=== PATIENT | female | born 1955 | race Caucasian/White ===

== ENCOUNTER 2018-02-01 16:50 | Emergency (ER) | payer BC, OTHER ==
--- NOTE | 2018-02-01 16:55 | PDOC ---
History of Present Illness - History of Present Illness Initial Comments: 02/01/18 18:02 Patient is a 62 year old female with PMHx of IBS, UTIs, fibroids, Raynaud's, peripheral neuropathy, cervical arthritic discs, who presents with epigastric and back pain for 2 weeks. Patient states that her back pain began first and then her abdominal pain began. Her abdominal pain worsened 4 days ago and describes it as burning, pressure-like, constant, at times sharp. Abdominal pain has gotten to 10/10 at times, especially at night. Patient states she took 600mg of Ibuprofen last night and this morning to get through the night. She also admits to vaginal and rectal pain as well as nausea and lethargy. Surgical Hx: inguinal hernia repair Social Hx: social EtOH, quit smoking PCP: Iesha Hernández <Rebeka Bass - Last Filed: 02/01/18 18:03> - General History Source: Patient Exam Limitations: No Limitations <Ijeoma Elias - Last Filed: 02/02/18 14:47> - General Chief Complaint: Pain Stated Complaint: ABD, BACK PAIN Time Seen by Provider: 02/01/18 16:54 Past History <Rebeka Bass - Last Filed: 02/01/18 18:03> <Ijeoma Elias - Last Filed: 02/02/18 14:47> - Past Medical History Allergies/Adverse Reactions: Allergies Allergy/AdvReac Type Severity Reaction Status Date / Time cortisone Allergy Verified 02/01/18 16:56 Penicillins Allergy Verified 02/01/18 16:56 Sulfa (Sulfonamide Allergy Verified 02/01/18 16:56 Antibiotics) sulfamethoxazole Allergy Verified 02/01/18 16:56 [From ] Tetracyclines Allergy Verified 02/01/18 16:56 trimethoprim [From ] Allergy Verified 02/01/18 16:56 Home Medications: Ambulatory Orders Escitalopram Oxalate [Lexapro -] 10 mg PO DAILY 02/01/18 Eszopiclone [Lunesta] 3 mg PO HS 02/01/18 Ibuprofen 600 mg PO ASDIR 02/01/18 Review of Systems - Review of Systems Comments:: 02/01/18 18:03 GENERAL/CONSTITUTIONAL: +lethargy. No: fever, chills, weakness, loss of appetite. HEAD, EYES, EARS, NOSE AND THROAT: No: change in vision, ear pain, discharge, sore throat, throat swelling. CARDIOVASCULAR: No: chest pain, lightheadedness, palpitations, syncope RESPIRATORY: No: cough, shortness of breath, wheezing, hemoptysis, stridor. GASTROINTESTINAL: +epigastric pain. +rectum pain + nausea No: nausea, vomiting , diarrhea, rectal bleeding, constipation. GENITOURINARY: No: dysuria, hematuria, frequency, urgency, flank pain. MUSCULOSKELETAL: No: back pain, neck pain, joint pain, muscle swelling or pain SKIN: No: lesions, pallor, rash or easy bruising. NEUROLOGIC: No: headache, vertigo, paresthesias, weakness ENDOCRINE: No: unexplained weight gain or loss HEMATOLOGIC/LYMPHATIC: No: anemia, easy bleeding, swelling nodes <Rebeka Bass - Last Filed: 02/01/18 18:03> *Physical Exam - Vital Signs Last Vital Signs Temp Pulse Resp BP Pulse Ox 98.3 F 63 18 139/69 99 02/01/18 16:50 02/01/18 16:50 02/01/18 16:50 02/01/18 16:50 02/01/18 16:50 - Physical Exam Comments: 02/01/18 18:03 GENERAL: The patient is in no acute distress. Answer questions appropriately HEAD: Normal with no signs of trauma. EYES: PERRLA, EOMI, sclera anicteric, conjunctiva clear. ENT: Ears normal, nares patent, oropharynx clear without exudates. Moist mucous membranes. NECK: Normal range of motion, supple without lymphadenopathy, JVD, or masses. LUNGS: Breath sounds equal, clear to auscultation bilaterally. No wheezes, and no crackles. HEART:Regular rate and rhythm, normal S1 and S2 without murmur, rub or gallop. ABDOMEN: Soft, epigastric tenderness, Shooting pain to palpation from RLQ LLQ, normoactive bowel sounds. No guarding, no rebound. EXTREMITIES: Normal range of motion, no edema. No clubbing or cyanosis. No erythema, or tenderness. NEUROLOGICAL: Cranial nerves II through XII grossly intact. Normal speech. No focal neurological deficits. MUSCULOSKELETAL: Back nontender to palpation, no CVA tenderness SKIN: Warm, Dry, normal turgor, no rashes or lesions noted. <Rebeka Bass - Last Filed: 02/01/18 18:03> ED Treatment Course - LABORATORY CBC & Chemistry Diagram: 02/01/18 17:30 02/01/18 17:30 - ADDITIONAL ORDERS Additional order review: Laboratory Results 02/01/18 17:00 Urine Color Yellow Urine Appearance Clear Urine pH 7.0 Ur Specific [place] 1.010 Urine Protein Negative Urine Glucose (UA) Negative Urine Ketones Negative Urine Blood Negative Urine Nitrite Negative Urine Bilirubin Negative Urine Urobilinogen 0.2 Ur Leukocyte Esterase Negative 02/01/18 17:30 RBC 4.74 MCV 90.9 MCHC 34.1 RDW 12.7 MPV 7.2 L Neutrophils % 69.8 Lymphocytes % 20.1 Monocytes % 7.2 Eosinophils % 0.8 Basophils % 2.1 H - Medications Given in the ED: ED Medications Discontinued Medications Generic Name Dose Route Start Last Admin Trade Name Freq PRN Reason Stop Dose Admin Ondansetron HCl 4 mg 02/01/18 17:20 02/01/18 17:45 Zofran Injection IVPUSH 02/01/18 17:21 4 mg ONCE ONE Administration <Rebeka Bass - Last Filed: 02/01/18 18:03> - LABORATORY CBC & Chemistry Diagram: 02/01/18 17:30 02/01/18 17:30 <Ijeoma Elias - Last Filed: 02/02/18 14:47> Medical Decision Making - Medical Decision Making 02/01/18 17:36 Ms Josh García She is a 62-year-old female presents emergency department with a complaint of abdominal pain from her primary care physician's office. Briefly she has a history of IBS (diagnosed as a young woman with ulcerative colitis, never treated for this), history of renal bouts disease, history of bilateral peripheral neuropathy of the lower extremity, history of gluten sensitivity/lactose intolerance. Patient states that a possibly 2 weeks ago she noted back pain which was initially mild, bearable. She gradually noticed worsening of her back pain and now associated abdominal pain. Again, pain was bearable. Approximately 4 days ago patient noted that her pain significantly worsened. Typically she is very active person with no difficulty ambulating. She noticed on account of her pain that she has hunched over, and was now walking more slowly. She describes her pain as sharp/burning/pressure. 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, has not followed up with GI in at least 6 years Of note, pt had a dx of myeloma, was told that she needed a work up She followed up with her doctor 6 months later and was told that everything was normal 02/01/18 18:20 Laboratory Tests 02/01/18 02/01/18 02/01/18 17:00 17:30 17:30 WBC 6.2 Hgb 14.7 Hct 43.1 Plt Count 301 Neutrophils % 69.8 Lymphocytes % 20.1 Sodium 125 L Potassium 5.1 Chloride 91 L Carbon Dioxide 25 BUN 14 Creatinine < 0.8 Random Glucose 91 Total Bilirubin 1.2 H Total Protein 8.4 H Albumin 5.1 H Total Amylase 112 Urine Ketones Negative Urine Blood Negative Urine Nitrite Negative Ur Leukocyte Esterase Negative Pending CT Pt signed out to Dr Betancur clinical impression: abdominal pain, initial presentation hyponatremia, initial presentation <Ijeoma Elias - Last Filed: 02/02/18 14:47> *DC/Admit/Observation/Transfer - Attestations Scribe Attestion: 02/01/18 18:03 Documentation prepared by Rebeka Bass, acting as medical assistant per diem for Ijeoma Elias MD. <Rebeka Bass - Last Filed: 02/01/18 18:03> <Ijeoma Elias - Last Filed: 02/02/18 14:47> Diagnosis at time of Disposition: Hyponatremia, Constipation - Discharge Dispostion Disposition: AGAINST MEDICAL ADVICE Condition at time of disposition: Stable - Referrals Referrals: Iesha Andrew MD [Primary Care Provider] - - Patient Instructions Additional Instructions: It is very important that you follow-up with your primary care doctor tomorrow get your sodium level repeated You are leaving AGAINST MEDICAL ADVICE by leaving AGAINST MEDICAL ADVICE you except the risks involved which could include problems with your heart, seizures , passing out, . Purchase some electrolyte solution such as Gatorade, Powerade or Pedialyte and drink it tonight. For the constipation increase fiber in your diet, and you can use Dulcolax or MiraLAX or an [id number] laxative Return to the emergency department immediately with ANY new, persistent or worsening symptoms. Continue any medications as previously prescribed by your physician. You should follow up with your primary doctor as soon as possible regarding today's emergency department visit. . Please make sure your doctor reviews the results of your emergency evaluation. Thank you for coming to the Emergency Department today for your care. It was a pleasure to see you today. Please note that your evaluation is INCOMPLETE until you follow-up with your doctor. - Post Discharge Activity
[2018-02-01 17:01] VITALS: TEMP 98.3; BMI 19.7
[2018-02-01 17:13] LABS: URINE APPEARANCE Clear; URINE BILIRUBIN Negative (NEGATIVE); URINE BLOOD Negative (NEGATIVE); URINE GLUCOSE (UA) Negative (NEGATIVE); URINE KETONE Negative (NEGATIVE); URINE LEUK ESTERASE Negative (NEGATIVE); URINE NITRITE Negative (NEGATIVE); URINE PROTEIN Negative (NEGATIVE); URINE UROBILINOGEN 0.2 (0.2-1.0)
[2018-02-01 17:14] LABS: URINE COLOR YELLOW
[2018-02-01] MEDS ORDERED: SODIUM CHLORIDE 1,000 ML IV STA (17:20)
[2018-02-01] MEDS ORDERED: morphine CARPU-JECT 4 MG/1 ML DISP.SYRIN IVPUSH ONE (17:20)
[2018-02-01] MEDS ORDERED: ONDANSETRON 4 MG/2 ML VIAL IVPUSH ONE (17:20)
[2018-02-01] MEDS ORDERED: ONDANSETRON 4 MG/2 ML VIAL ONE (17:35)
[2018-02-01] MEDS ORDERED: morphine SULFATE 4 MG/ML VIAL ONE (17:35)
[2018-02-01 17:40] LABS: BASO % 2.1 % (0-2.0); EOS % 0.8 % (0-4.5); HEMATOCRIT 43.1 % (32.4-45.2); HEMOGLOBIN 14.7 GM/dl (10.7-15.3); LYMPH % 20.1 % (8-40); MCHC 34.1 g/dl (32.0-36.0); MEAN CELL VOLUME 90.9 fl (80-96); MEAN PLT VOLUME 7.2 fl (7.5-11.1); MONO % 7.2 % (3.8-10.2); NEUT % 69.8 % (42.8-82.8); PLATELET COUNT 301 K/MM3 (134-434); RBC 4.74 M/mm3 (3.60-5.2); RDW 12.7 % (11.6-15.6); WHITE BLOOD COUNT 6.2 K/mm3 (4.0-10.8)
[2018-02-01 17:50] LABS: ALBUMIN 5.1 g/dl (3.5-5.0); ALK PHOS 77 U/L (32-92); AMYLASE 112 U/L (25-125); ANION GAP 9 (8-16); BILIRUBIN,TOTAL 1.2 mg/dl (0.2-1.0); BLOOD UREA NITROGEN 14 mg/dl (7-18); CALCIUM 9.6 mg/dl (8.4-10.2); CHLORIDE 91 mmol/L (98-107); CO2 25 mmol/L (22-28); GLUCOSE,RANDOM 91 mg/dl (74-106); SGOT/AST 35 U/L (10-42); SGPT/ALT 21 U/L (10-40); SODIUM 125 mmol/L (136-145); TOT PROT 8.4 g/dl (6.4-8.3)
[2018-02-01 18:03] LABS: CREATININE < 0.8 mg/dl (0.6-1.3); POTASSIUM 5.1 mmol/L (3.5-5.1)
[2018-02-01 19:06] LABS: LIPASE 220 U/L (73-393)
--- NOTE | 2018-02-01 19:24 | PDOC ---
*Physical Exam - Vital Signs Last Vital Signs Temp Pulse Resp BP Pulse Ox 98.3 F 63 18 139/69 99 02/01/18 16:50 02/01/18 16:50 02/01/18 16:50 02/01/18 16:50 02/01/18 16:50 ED Treatment Course - LABORATORY CBC & Chemistry Diagram: 02/01/18 17:30 02/01/18 17:30 - ADDITIONAL ORDERS Additional order review: Laboratory Results 02/01/18 02/01/18 17:30 17:00 Sodium 125 L Potassium 5.1 Chloride 91 L Carbon Dioxide 25 Anion Gap 9 BUN 14 Creatinine < 0.8 Creat Clearance w eGFR > 60 Random Glucose 91 Calcium 9.6 Total Bilirubin 1.2 H AST 35 ALT 21 Alkaline Phosphatase 77 Total Protein 8.4 H Albumin 5.1 H Total Amylase 112 Lipase 220 Urine Color Yellow Urine Appearance Clear Urine pH 7.0 Ur Specific [place] 1.010 Urine Protein Negative Urine Glucose (UA) Negative Urine Ketones Negative Urine Blood Negative Urine Nitrite Negative Urine Bilirubin Negative Urine Urobilinogen 0.2 Ur Leukocyte Esterase Negative 02/01/18 17:30 RBC 4.74 MCV 90.9 MCHC 34.1 RDW 12.7 MPV 7.2 L Neutrophils % 69.8 Lymphocytes % 20.1 Monocytes % 7.2 Eosinophils % 0.8 Basophils % 2.1 H - Medications Given in the ED: ED Medications Discontinued Medications Generic Name Dose Route Start Last Admin Trade Name Freq PRN Reason Stop Dose Admin Morphine Sulfate 2 mg 02/01/18 17:20 02/01/18 17:50 Morphine Injection - IVPUSH 02/01/18 17:21 2 mg ONCE ONE Administration Ondansetron HCl 4 mg 02/01/18 17:20 02/01/18 17:45 Zofran Injection IVPUSH 02/01/18 17:21 4 mg ONCE ONE Administration Progress Note - Progress Note Progress Note: Care of this patient was transferred to [place] from Dr. Elias at 1900 hrs. This is a 62-year-old female was sent in by her PMD for evaluation of lower abdominal pain. Patient's workup of this chart does reveal a sodium of 125 which will need to be admitted to an observation bed overnight for correction of. Otherwise the workup is normal. Patient has a CAT scan pending. We'll reassess and follow CAT scan results and admit patient to an observation telemetry bed. Patient CAT scan shows moderate amount of fecal retention otherwise normal Discussed with patient the importance of keeping her at least overnight to replete her sodium and she most likely will be able to be discharged in the morning however patient adamantly refuses to stay overnight and has requested to sign out AGAINST MEDICAL ADVICE patient understands the risks of she is seizure, arrhythmias and . Patient signed out AGAINST MEDICAL ADVICE *DC/Admit/Observation/Transfer Diagnosis at time of Disposition: Hyponatremia, Constipation - Discharge Dispostion Disposition: AGAINST MEDICAL ADVICE Condition at time of disposition: Stable Admit: No - Referrals Referrals: Iesha Andrew MD [Primary Care Provider] - - Patient Instructions Additional Instructions: It is very important that you follow-up with your primary care doctor tomorrow get your sodium level repeated You are leaving AGAINST MEDICAL ADVICE by leaving AGAINST MEDICAL ADVICE you except the risks involved which could include problems with your heart, seizures , passing out, . Purchase some electrolyte solution such as Gatorade, Powerade or Pedialyte and drink it tonight. For the constipation increase fiber in your diet, and you can use Dulcolax or MiraLAX or an [id number] laxative Return to the emergency department immediately with ANY new, persistent or worsening symptoms. Continue any medications as previously prescribed by your physician. You should follow up with your primary doctor as soon as possible regarding today's emergency department visit. . Please make sure your doctor reviews the results of your emergency evaluation. Thank you for coming to the Emergency Department today for your care. It was a pleasure to see you today. Please note that your evaluation is INCOMPLETE until you follow-up with your doctor. - Post Discharge Activity
[2018-02-01 20:53] VITALS: BP 126/59; PULSE 68
[2018-02-01] MEDS ORDERED: SODIUM CHLORIDE 1,000 ML IV SCH (21:00)
== END 2018-02-01 21:28 | disposition left against medical advice (07) ==
LOC: FER 16:50
PROC: 3E033NZ Introduction of Analgesics, Hypnotics, Sedatives into Peripheral Vein, Percutaneous Approach (ICD-10-PCS; principal; 2018-02-01)
PROC: 3E033GC Introduction of Other Therapeutic Substance into Peripheral Vein, Percutaneous Approach (ICD-10-PCS; 2018-02-01)
PROC: 3E0337Z Introduction of Electrolytic and Water Balance Substance into Peripheral Vein, Percutaneous Approach (ICD-10-PCS; 2018-02-01)
DX: E87.1 Hypo-osmolality and hyponatremia (principal); K59.00 Constipation, unspecified; I73.00 Raynaud's syndrome without gangrene; K58.9 Irritable bowel syndrome, unspecified; Z87.891 Personal history of nicotine dependence
CPT/HCPCS: 36415; 74177-TC; 80053; 81003; 82150; 83690; 85025; 87086; 99283-25; J7030

== ENCOUNTER 2019-03-09 17:26 | Emergency (ER) | payer BC, OTHER | END 2019-03-09 18:54 | disposition home or self-care (01) | LOC: FER 17:26 ==

== ENCOUNTER 2021-02-09 09:31 | Day surgery (SDC) | payer OTHER, BC ==
[2021-02-07 16:15] VITALS: BMI 16.4
[2021-02-09] MEDS ORDERED: PROPOFOL 20 ML ONE ×2 (10:55)
[2021-02-09 11:46] VITALS: PULSE 76
[2021-02-09 12:14] VITALS: BP 121/74; TEMP 98
== END 2021-02-09 12:16 | disposition home or self-care (01) ==
LOC: FASU-ENDO 09:31
PROVIDERS: ATTEND Internal Medicine Gastroenterology
PROC: 0DB78ZX Excision of Stomach, Pylorus, Via Natural or Artificial Opening Endoscopic, Diagnostic (ICD-10-PCS; 2021-02-09)
PROC: 0DB48ZX Excision of Esophagogastric Junction, Via Natural or Artificial Opening Endoscopic, Diagnostic (ICD-10-PCS; 2021-02-09)
PROC: 0DB98ZX Excision of Duodenum, Via Natural or Artificial Opening Endoscopic, Diagnostic (ICD-10-PCS; principal; 2021-02-09 11:17)
DX: K29.50 Unspecified chronic gastritis without bleeding (principal); K31.89 Other diseases of stomach and duodenum; K22.8 Other specified diseases of esophagus

== ENCOUNTER 2021-03-23 09:34 | Day surgery (SDC) | payer OTHER, BC ==
[2021-03-16 16:13] VITALS: BMI 16.6
[2021-03-23] MEDS ORDERED: PROPOFOL 20 ML ONE ×3 (10:30)
[2021-03-23] MEDS ORDERED: LIDOCAINE HCL/PF 2% SDV 5ML VIAL ONE (10:30)
[2021-03-23 11:34] VITALS: TEMP 97.9
[2021-03-23 11:46] VITALS: BP 101/65; PULSE 60
== END 2021-03-23 12:00 | disposition home or self-care (01) ==
LOC: FASU-ENDO 09:34
PROVIDERS: ATTEND Internal Medicine Gastroenterology
PROC: 0DBL8ZX Excision of Transverse Colon, Via Natural or Artificial Opening Endoscopic, Diagnostic (ICD-10-PCS; 2021-03-23)
PROC: 0DBM8ZX Excision of Descending Colon, Via Natural or Artificial Opening Endoscopic, Diagnostic (ICD-10-PCS; 2021-03-23)
PROC: 0DBK8ZX Excision of Ascending Colon, Via Natural or Artificial Opening Endoscopic, Diagnostic (ICD-10-PCS; principal; 2021-03-23 10:54)
DX: K63.89 Other specified diseases of intestine (principal); R19.4 Change in bowel habit; R63.4 Abnormal weight loss; K64.1 Second degree hemorrhoids; Z68.1 Body mass index [BMI] 19.9 or less, adult; Z88.0 Allergy status to penicillin; Z88.2 Allergy status to sulfonamides

== ENCOUNTER 2021-07-08 08:39 | Emergency (ER) | payer OTHER, BC ==
[2021-07-08 08:59] VITALS: BP 109/68; PULSE 84; TEMP 98.4; BMI 16.5
[2021-07-08 09:29] LABS: BASO % 2.8 % (0-2.0); EOS % 0.6 % (0-4.5); HEMATOCRIT 40.5 % (32.4-45.2); HEMOGLOBIN 13.6 GM/dl (10.7-15.3); LYMPH % 19.4 % (8-40); MCH 31.1 pg (25.7-33.7); MCHC 33.5 g/dl (32.0-36.0); MONO % 9.7 % (3.8-10.2); NEUT % 67.5 % (42.8-82.8); PLATELET COUNT 260 10^3/uL (134-434); RBC 4.36 M/mm3 (3.60-5.2); RDW 12.5 % (11.6-15.6); WHITE BLOOD COUNT 4.3 K/mm3 (4.0-10.8)
[2021-07-08 09:30] LABS: INR 1.03 (0.82-1.09); PROTHROMBIN TIME (PATIENT) 11.5 SEC (10.2-13.0)
[2021-07-08 09:35] LABS: ALBUMIN 4.2 g/dl (3.4-5.0); BILIRUBIN,TOTAL 0.7 mg/dl (0.2-1); CALCIUM 9.1 mg/dl (8.5-10); CREATININE 0.7 mg/dl (0.55-1.3); TOT PROT 6.7 g/dl (6.4-8.2)
== END 2021-07-08 09:58 | disposition home or self-care (01) ==
LOC: FER 08:39
DX: S80.10XA Contusion of unspecified lower leg, initial encounter (principal)
CPT/HCPCS: 36415; 80053; 85025; 85610; 99283-25